=== PATIENT | female | born 1960 | race Caucasian/White ===

== ENCOUNTER 2024-08-03 10:15 | Emergency (ER) | payer BC ==
[2024-08-03] VITALS (50 sets, daily range): BP systolic 85–204; BP diastolic 35–114
[~2024-08-03] VITALS: Ht 157.5 cm; Wt 104.0 kg
[~2024-08-03 10:15] MED LIST: AMOXICILLIN500 MG PO; EFFEXOR25 M1 PO; IMODIUM2 MG PO; LEVOTHYROXIN50 MCG PO; MELOXICAM15 MG PO; PRILOSEC20 MG/CAP PO; REGLAN10 MG PO; SIMVASTATIN20 MG PO; ZOFRAN4 MG/TAB PO
[2024-08-03] MEDS ORDERED: CRESTOR10 MG PO (10:28)
[2024-08-03] MEDS ORDERED: ASPIRIN 81 MG/TAB PO ONE (10:45)
[2024-08-03 11:07] LABS: BASO% 0.6 % (0-3); EOS% 1.1 % (0-8); HEMATOCRIT 45.7 % (37.0-47.0); HEMOGLOBIN 14.7 g/dl (12.0-16.0); IMMATURE GRANULOCYTES 0.1 % (0.0-5.0); LYMPH% 19.6 % (15-41); MEAN CELL VOLUME 89.4 fL CALC (80.0-100.0); MEAN CORPUSCULAR HGB 28.8 pG CALC (26.0-32.0); MEAN CORPUSCULAR HGB CONC 32.2 g/dL CAL (32.0-36.0); MONO% 8.4 % (2-13); NEUT# 6.11 thou/uL (2.00-7.15); NEUT% 70.2 % (42-76); RED BLOOD COUNT 5.11 mill/uL (4.20-5.60); RED CELL DISTRI WIDTH 14.2 % (11.5-15.5)
[2024-08-03] MEDS ORDERED: KETOROLAC TROMETHAMINE 15 MG/ML SDV IV STA (11:09)
[2024-08-03 11:15] LABS: ALBUMIN 4.7 g/dL (3.2-5.0); ALKALINE PHOSPHATASE 110 u/l (38-126); ANION GAP 13 (6-22 (CALC)); BILIRUBIN, TOTAL 0.6 mg/dL (0.02-1.3); BUN 13 mg/dL (8-23); BUN/CREATININE RATIO 20 (12-20 (CALC)); CARBON DIOXIDE 26 mmol/l (22-30); CHLORIDE 103 mmol/l (95-108); CREATININE 0.6 mg/dL (0.5-1.0); ESTIMATED GFR 101 ML/MIN (>=90 (CALC)); LIPASE 61 u/l (23-300); POTASSIUM 3.9 mmol/l (3.5-5.1); SGOT/AST 57 u/l (9-36); SODIUM 138 mmol/l (137-146); TOTAL PROTEIN 7.9 g/dL (6.3-8.2)
[2024-08-03] MEDS ORDERED: METOPROLOL TARTRATE 5 MG/5 ML VIAL IV ONE ×3 (11:50→13:05)
[2024-08-03] MEDS ORDERED: LABETALOL HCL 20 MG/ 4 ML CARTRG IV ONE (12:25)
[2024-08-03] MEDS ORDERED: hydrALAZINE HCL 20 MG/ML VIAL(1 ML) IV ONE (13:25)
[2024-08-03] MEDS ORDERED: SODIUM CHLORIDE 0.9% 1,000 ML IV ONE (14:15)
== END 2024-08-03 17:20 | disposition home or self-care (01) | DRG 313 ==
LOC: ED 10:15
PROVIDERS: Family Medicine
DX: R07.89 Other chest pain (principal); I10 Essential (primary) hypertension; K21.9 Gastro-esophageal reflux disease without esophagitis; E78.00 Pure hypercholesterolemia, unspecified; Z82.49 Family history of ischemic heart disease and other diseases of the circulatory system
CPT/HCPCS: J0360; J1885